=== PATIENT | female | born 1955 | race Caucasian/White ===

== ENCOUNTER → 2017-06-27 | Outpatient (CLI) | payer OTHER | END | disposition home or self-care (01) | LOC: KCIC MAMMO 12:29 | DX: Z12.31 Encounter for screening mammogram for malignant neoplasm of breast (principal); R92.1 Mammographic calcification found on diagnostic imaging of breast | CPT/HCPCS: 77067 ==

== ENCOUNTER → 2017-06-29 | Outpatient (CLI) | payer OTHER | END | disposition home or self-care (01) | LOC: KCIC MAMMO 13:43 | DX: R92.1 Mammographic calcification found on diagnostic imaging of breast (principal) | CPT/HCPCS: 77065 ==

== ENCOUNTER → 2018-07-25 | Outpatient (CLI) | payer OTHER ==
[~2018-07-25] MED LIST: ALPR1TAB6 PO; HYDR-2769 PO; LISI-334 PO; LOVA20TA2 PO; RANI150T2 PO; VERA180T6 PO
--- NOTE | 2018-07-25 13:55 | KCIC ---
Bilateral digital screening mammograms: Reason for examination: Routine screening. Comparison is made to previous studies dated 08/27/2015 and 06/27/2017. Interpretation was made with the benefit of CAD. The skin and nipples show no abnormalities. No abnormal axillary lymph nodes are seen. The breast parenchyma shows scattered fibroglandular density. (Breast density: Category B.) There are no dominant masses, suspicious calcifications or architectural distortions. Some benign calcifications are present. Impression: No evidence of malignancy. Recommend routine screening. BI-RADS category 2: Benign "Our facility is accredited by the [employer]ammography [employer]." This patient's information has been entered into a reminder system for the patient to be notified with the results of her examination and a target date for the next mammogram. Electronically signed by: Irene Vincent MD (07/25/2018 1:52 PM) [id number]
== END | disposition home or self-care (01) ==
LOC: KCIC MAMMO 10:40
PROVIDERS: ATTEND Obstetrics & Gynecology
DX: Z12.31 Encounter for screening mammogram for malignant neoplasm of breast (principal)
CPT/HCPCS: 77067

== ENCOUNTER 2019-06-29 16:34 | Emergency (ER) | payer OTHER ==
[~2019-06-29] VITALS: Ht 154.9 cm; Wt 68.0 kg
--- NOTE | 2019-06-29 17:16 | PHYS DOC ---
Past Medical History Past Medical History: Hypertension Additional Past Medical Histor: chronic pain, IBS Past Surgical History: Hysterectomy, Other Additional Past Surgical Histo: NECK SGRY Alcohol Use: None Drug Use: None Adult General Chief Complaint Chief Complaint: HYPERTENSION HPI HPI Patient is a 64 year old Female who presents with states for the last couple weeks she has noticed she has had a headache off and on to the top of her head and she does not usually get headaches. She states she just hasn't felt very good and his heart is coming in her years. She states that she took her blood pressure at home and is been running high between 160s to 190s. She states she is on lisinopril of which she doubled up on this morning because she thought it would help her blood pressure. States she also takes Verapamil. Patient denies chest pain, shortness of air, dizziness, visual changes, weakness, numbness or tingling, abdominal pain, nausea, vomiting, diarrhea, fevers, back pain, weakness. Review of Systems Review of Systems HENT: Denies nasal congestion or sore throat. Ringing in ears. [] Neurologic: headache, denies focal weakness or sensory changes [] All other systems were reviewed and found to be within normal limits, except as documented in this note. Current Medications Current Medications Current Medications Medications (Trade) Dose Ordered Sig/Patti Start Time Stop Time Status Last Admin Dose Admin Clonidine HCl (Catapres) 0.1 mg 1X ONCE 06/29/19 18:15 06/29/19 18:16 DC 06/29/19 18:18 0.1 MG Allergies Allergies Allergies Coded Allergies Type Severity Reaction Last Updated Verified amoxicillin Allergy Intermediate 06/29/19 Yes Physical Exam Physical Exam Constitutional: Well developed, well nourished, no acute distress, non-toxic appearance. [] HENT: Normocephalic, atraumatic, bilateral external ears normal, oropharynx moist, no oral exudates, nose normal. [] Eyes: PERRLA, EOMI, conjunctiva normal, no discharge. [] Neck: Normal range of motion, no tenderness, supple, no stridor. [] Cardiovascular:Heart rate regular rhythm, no murmur [] Lungs & Thorax: Bilateral upper breath sounds clear and lower diminished to auscultation [] Abdomen: Bowel sounds normal, soft, no tenderness, no masses, no pulsatile masses. [] Skin: Warm, dry, no erythema, no rash. [] Back: No tenderness, no CVA tenderness. [] Extremities: No tenderness, no cyanosis, no clubbing, ROM intact, no edema. [] Neurologic: Alert and oriented X 3, normal motor function, normal sensory function, no focal deficits noted. [] Psychologic: Affect normal, judgement normal, mood normal. [] Current Patient Data Vital Signs Vital Signs Date Time Temp Pulse Resp B/P (MAP) Pulse Ox O2 Delivery O2 Flow Rate FiO2 06/29/19 18:18 81 187/78 06/29/19 17:43 18 95 06/29/19 16:56 98.2 Room Air 98.2 Lab Values Laboratory Tests Test 06/29/19 17:19 06/29/19 18:20 White Blood Count 10.2 x10^3/uL (4.0-11.0) Red Blood Count 5.83 x10^6/uL (3.50-5.40) H Hemoglobin 17.6 g/dL (12.0-15.5) H Hematocrit 52.8 % (36.0-47.0) H Mean Corpuscular Volume 91 fL (79-100) Mean Corpuscular Hemoglobin 30 pg (25-35) Mean Corpuscular Hemoglobin Concent 33 g/dL (31-37) Red Cell Distribution Width 14.6 % (11.5-14.5) H Platelet Count 203 x10^3/uL (140-400) Neutrophils (%) (Auto) 64 % (31-73) Lymphocytes (%) (Auto) 28 % (24-48) Monocytes (%) (Auto) 6 % (0-9) Eosinophils (%) (Auto) 1 % (0-3) Basophils (%) (Auto) 1 % (0-3) Neutrophils # (Auto) 6.6 x10^3/uL (1.8-7.7) Lymphocytes # (Auto) 2.8 x10^3/uL (1.0-4.8) Monocytes # (Auto) 0.6 x10^3/uL (0.0-1.1) Eosinophils # (Auto) 0.1 x10^3/uL (0.0-0.7) Basophils # (Auto) 0.1 x10^3/uL (0.0-0.2) Prothrombin Time 13.0 SEC (11.7-14.0) Prothrombin Time INR 1.0 (0.8-1.1) Sodium Level 139 mmol/L (136-145) Potassium Level 3.7 mmol/L (3.5-5.1) Chloride Level 102 mmol/L (98-107) Carbon Dioxide Level 28 mmol/L (21-32) Anion Gap 9 (6-14) Blood Urea Nitrogen 15 mg/dL (7-20) Creatinine 1.0 mg/dL (0.6-1.0) Estimated GFR (Cockcroft-Gault) 55.5 BUN/Creatinine Ratio 15 (6-20) Glucose Level 115 mg/dL (70-99) H Calcium Level 9.4 mg/dL (8.5-10.1) Total Bilirubin 0.4 mg/dL (0.2-1.0) Aspartate Amino Transferase (AST) 20 U/L (15-37) Alanine Aminotransferase (ALT) 15 U/L (14-59) Alkaline Phosphatase 70 U/L (46-116) Troponin I Quantitative < 0.017 ng/mL (0.000-0.055) VT-Vyj-B-Type Natriuretic Peptide 81 pg/mL (0-124) Total Protein 7.2 g/dL (6.4-8.2) Albumin 4.0 g/dL (3.4-5.0) Albumin/Globulin Ratio 1.3 (1.0-1.7) Urine Collection Type Unknown Urine Color Yellow Urine Clarity Cloudy Urine pH 6.5 Urine Specific Anderson 1.010 Urine Protein Negative mg/dL (NEG-TRACE) Urine Glucose (UA) Negative mg/dL (NEG) Urine Ketones (Stick) Negative mg/dL (NEG) Urine Blood Negative (NEG) Urine Nitrite Negative (NEG) Urine Bilirubin Negative (NEG) Urine Urobilinogen Dipstick 1.0 mg/dL (0.2 mg/dL) Urine Leukocyte Esterase Negative (NEG) Urine RBC Occ /HPF (0-2) Urine WBC 1-4 /HPF (0-4) Urine Squamous Epithelial Cells Mod /LPF Urine Bacteria Moderate /HPF (0-FEW) Urine Opiates Screen Pos (NEG) Urine Methadone Screen Neg (NEG) Urine Barbiturates Neg (NEG) Urine Phencyclidine Screen Neg (NEG) Urine Amphetamine/Methamphetamine Neg (NEG) Urine Benzodiazepines Screen Neg (NEG) Urine Cocaine Screen Neg (NEG) Urine Cannabinoids Screen Neg (NEG) Urine Ethyl Alcohol Neg (NEG) Laboratory Tests 06/29/19 17:19 Laboratory Tests 06/29/19 17:19 EKG EKG Sinus Rhythm and no STEMI[] Interpretation Time: [address] Stevens Radiology/Procedures Radiology/Procedures [] Impressions: [address] [address] IMAGING REPORT Signed PATIENT: WOODY MALONE: [id number] : 1955 LOCATION: ER AGE: 64 SEX: F EXAM STATUS: PRE ER ORD. PHYSICIAN: HANNA JARA APRN REASON: HYPERTENSION PROCEDURE: CHEST PA & LATERAL EXAM: CHEST 2 VIEWS. HISTORY: Hypertension. COMPARISON: 08/10/2013. FINDINGS: Frontal and lateral views of the chest are obtained. There are no confluent infiltrates. There is no pneumothorax or pleural effusion. The heart is not enlarged. Anterior cervical discectomy and fusion changes are noted. IMPRESSION: 1. No confluent infiltrates. Electronically signed by: Chris Belcher MD (06/29/2019 6:10 PM) [id number] DICTATED and SIGNED BY: IMELDA BELCEHR MD DATE: 06/29/[address] [address] IMAGING REPORT Signed PATIENT: WOODY MALONE: [id number] : 1955 LOCATION: ER AGE: 64 SEX: F EXAM STATUS: PRE ER ORD. PHYSICIAN: HANNA JARA APRN REASON: headache, htn PROCEDURE: CT HEAD WO CONTRAST EXAM: CT HEAD WITHOUT CONTRAST. HISTORY: Headache, hypertension. TECHNIQUE: Computed tomography of the head was performed without intravenous contrast. One or more of the following individualized dose reduction techniques were utilized for this examination: 1. Automated exposure control. 2. Adjustment of the mA and/or kV according to patient size. 3. Use of iterative reconstruction technique. COMPARISON: None. FINDINGS: There is no intracranial hemorrhage. Hypoattenuation within the periventricular white matter indicates mild chronic microangiopathic change. The ventricles are normal in size and position. The visualized paranasal sinuses appear clear. The orbits are unremarkable. The temporal bones are unremarkable. The calvarium reveals no suspicious lesions. IMPRESSION: 1. No acute intracranial findings. Electronically signed by: Chris Belcher MD (06/29/2019 6:18 PM) [id number] DICTATED and SIGNED BY: IMELDA BELCHER MD DATE: 06/29/191817 Course & Med Decision Making Course & Med Decision Making Ambulatory with steady gait. Speaks in full clear sentences. Skin pink warm and dry. PERRLA. No extremity edema. Lungs are clear to auscultation upper lobes but diminished in lower lobes. Patient is a smoker a pack and a half a day. She states that the headaches that come and go are not the worst headache she has ever experienced. After the clonidine given patients blood pressure has around the same. The patient is asymptomatic. 1800: Patient's blood pressure remains normal and 80s. I spoke to Dr. Stevens concerning this patient, findings and care plan. He states give the patient clonidine 0.1 down the ED. He states to have her increase her lisinopril to 40 mg daily and to follow-up with her doctor this coming week. Dragon Disclaimer Dragon Disclaimer This electronic medical record was generated, in whole or in part, using a voice recognition dictation system. NIHSS Stroke Scale NIH Stroke Scale: NIH Stroke Scale Response (Comments) Value Level of Consciousness: 0 Alert/Responsive 0 LOC Questions: 0 Answers both correctly 0 LOC Commands: 0 Performs both tasks 0 Best Gaze: 0 Normal 0 Visual: 0 No visual loss 0 Facial Palsy: 0 Normal, symmetrical 0 Motor - Left Arm 0 No drift 0 Motor - Right Arm 0 No drift 0 Motor - Left Leg 0 No drift 0 Motor: Right Leg 0 No drift 0 Limb Ataxia: 0 Absent 0 Sensory: 0 No loss 0 Best Language: 0 Normal 0 Dysathria: 0 Normal 0 Extinction and Inattention: 0 Normal 0 Total 0 Departure Departure Impression: Primary Impression: Hypertension Disposition: HOME, SELF-CARE Condition: STABLE Referrals: MIRANDA VANN MD (PCP) Patient Instructions: Hypertension Additional Instructions: Follow-up with primary care doctor this coming week. Increase your lisinopril to 40 mg a day. Watch your sodium intake and drink plenty of water. Problem Qualifiers Primary Impression: Hypertension Hypertension type: essential hypertension Qualified Codes: I10 - Essential (primary) hypertension HANNA JARA APRN Jun 29, 2019 17:16
[2019-06-29 17:32] LABS: BASO # 0.1 x10^3/uL (0.0-0.2); BASO % 1 % (0-3); EOS # 0.1 x10^3/uL (0.0-0.7); EOS % 1 % (0-3); HEMATOCRIT 52.8 % (36.0-47.0); HEMOGLOBIN 17.6 g/dL (12.0-15.5); LYMPH # 2.8 x10^3/uL (1.0-4.8); LYMPH % 28 % (24-48); MEAN CORPUSCULAR HEMOGLOBIN 30 pg (25-35); MEAN CORPUSCULAR HGB CONC 33 g/dL (31-37); MEAN CORPUSCULAR VOLUME 91 fL (79-100); MONO # 0.6 x10^3/uL (0.0-1.1); MONO % 6 % (0-9); NEUT # 6.6 x10^3/uL (1.8-7.7); NEUT % 64 % (31-73); PLATELET COUNT 203 x10^3/uL (140-400); RED BLOOD COUNT 5.83 x10^6/uL (3.50-5.40); RED CELL DISTRIBUTION WIDTH 14.6 % (11.5-14.5); WHITE BLOOD COUNT 10.2 x10^3/uL (4.0-11.0)
[2019-06-29 17:46] LABS: CALCIUM 9.4 mg/dL (8.5-10.1); GFR 55.5; POTASSIUM 3.7 mmol/L (3.5-5.1)
[2019-06-29 17:53] LABS: ALBUMIN/GLOBULIN RATIO 1.3 (1.0-1.7); TOTAL BILIRUBIN 0.4 mg/dL (0.2-1.0); TOTAL PROTEIN 7.2 g/dL (6.4-8.2)
--- NOTE | 2019-06-29 18:13 | RAD ---
EXAM: CHEST 2 VIEWS. HISTORY: Hypertension. COMPARISON: 08/10/2013. FINDINGS: Frontal and lateral views of the chest are obtained. There are no confluent infiltrates. There is no pneumothorax or pleural effusion. The heart is not enlarged. Anterior cervical discectomy and fusion changes are noted. IMPRESSION: 1. No confluent infiltrates. Electronically signed by: Chris Belcher MD (06/29/2019 6:10 PM) [id number]
[2019-06-29] MEDS ORDERED: cloNIDine HCL 0.1 MG TABLET PO ONE (18:15)
--- NOTE | 2019-06-29 18:21 | RAD ---
EXAM: CT HEAD WITHOUT CONTRAST. HISTORY: Headache, hypertension. TECHNIQUE: Computed tomography of the head was performed without intravenous contrast. One or more of the following individualized dose reduction techniques were utilized for this examination: 1. Automated exposure control. 2. Adjustment of the mA and/or kV according to patient size. 3. Use of iterative reconstruction technique. COMPARISON: None. FINDINGS: There is no intracranial hemorrhage. Hypoattenuation within the periventricular white matter indicates mild chronic microangiopathic change. The ventricles are normal in size and position. The visualized paranasal sinuses appear clear. The orbits are unremarkable. The temporal bones are unremarkable. The calvarium reveals no suspicious lesions. IMPRESSION: 1. No acute intracranial findings. Electronically signed by: Chris Belcher MD (06/29/2019 6:18 PM) [id number]
[2019-06-29 18:32] LABS: BILIRUBIN,URINE NEGATIVE (NEG); CLARITY,URINE CLOUDY; COLOR,URINE YELLOW; NITRITE,URINE NEGATIVE (NEG); PH,URINE 6.5; PROTEIN,URINE NEGATIVE (NEG-TRACE)
[2019-06-29 18:38] LABS: AMPHETAMINE/METHAMPHETAMINE NEG (NEG); BACTERIA,URINE MODERATE /HPF (0-FEW); BARBITURATES NEG (NEG); BENZODIAZEPINES NEG (NEG); CANNABINOIDS NEG (NEG); COCAINE NEG (NEG); METHADONE NEG (NEG); OPIATES POS (NEG); PHENCYCLIDINE NEG (NEG); RBC,URINE OCC /HPF (0-2); SQUAMOUS EPITHELIAL CELL,UR MOD /LPF
[2019-06-29 18:54] VITALS: BP 181/81
--- NOTE | 2019-06-30 17:39 | EKG ---
[facility] [address] [place] [address] Test Date: 2019-06-29 Test Time: 16:48:42 Pat Name: RACHEL MALONE Department: Room: Gender: F Help Aid: : 1955 Requested By: HANNA JARA Order Number: [id number] Reading MD: Measurements Intervals [place] Rate: 80 P: -51 MO: 142 QRS: -23 QRSD: 80 T: 61 QT: 368 QTc: 427 Interpretive Statements SINUS RHYTHM LEFTWARD AXIS R-S TRANSITION ZONE IN V LEADS DISPLACED TO THE LEFT T ABNORMALITY IN HIGH LATERAL LEADS ABNORMAL ECG No previous ECG available for comparison
== END 2019-06-29 19:20 | disposition home or self-care (01) ==
LOC: ER 16:34
DX: I10 Essential (primary) hypertension (principal); R51 Headache; G89.29 Other chronic pain; K58.9 Irritable bowel syndrome, unspecified; Z88.1 Allergy status to other antibiotic agents; F17.200 Nicotine dependence, unspecified, uncomplicated
CPT/HCPCS: 36415; 70450; 71046; 80053; 80307; 81001; 83880; 84484; 85025; 85610; 87086; 93005; 99285-25

== ENCOUNTER 2019-09-09 21:14 | Emergency (ER) | payer OTHER ==
[~2019-09-09] VITALS: Ht 162.6 cm; Wt 68.1 kg
--- NOTE | 2019-09-09 21:39 | PHYS DOC ---
Past Medical History Past Medical History: Hypertension Additional Past Medical Histor: chronic pain, IBS Past Surgical History: Hysterectomy, Other Additional Past Surgical Histo: NECK SGRY Smoking Status: Current Every Day Smoker Alcohol Use: None Drug Use: None General Adult EDM: Chief Complaint: COUGH HPI: HPI: Patient is a 64 year old female who presents with complaint of cough for the last 5 weeks. Patient states the cough is been intermittently productive of sputum and states that she has seen some blood mixed in with the sputum as well. Patient denies any fever. She denies any chest pain or shortness of breath. She denies any history of COPD but is a smoker. Patient states that she was told to come into the emergency room for further evaluation.[] Review of Systems: Review of Systems: Constitutional: Denies fever or chills. [] Respiratory: Complains of cough without shortness of breath. [] Cardiovascular: Denies chest pain or edema. [] GI: Denies abdominal pain, nausea, vomiting, bloody stools or diarrhea. [] Neurologic: Denies headache, focal weakness or sensory changes. [] A full 10 point review of systems has been completed and is otherwise negative. Heart Score: Risk Factors: Risk Factors: DM, Current or recent (<one month) smoker, HTN, HLP, family history of CAD, obesity. Risk Scores: Score 0 - 3: 2.5% MACE over next 6 weeks - Discharge Home Score 4 - 6: 20.3% MACE over next 6 weeks - Admit for Clinical Observation Score 7 - 10: 72.7% MACE over next 6 weeks - Early Invasive Strategies Allergies: Allergies: Allergies Coded Allergies Type Severity Reaction Last Updated Verified amoxicillin Allergy Intermediate 06/29/19 Yes Physical Exam: PE: Constitutional: Well developed, well nourished, no acute distress, non-toxic appearance. [] HENT: Normocephalic, atraumatic, bilateral external ears normal, oropharynx moist, no oral exudates, nose normal. [] Eyes: PERRLA, EOMI, conjunctiva normal, no discharge. [] Neck: Normal range of motion, no tenderness, supple, no stridor. [] Cardiovascular: Regular rate and rhythm[] Lungs & Thorax: Bilateral breath sounds clear to auscultation [] Abdomen: Bowel sounds normal, soft, no tenderness. [] Skin: Warm, dry, no erythema, no rash. [] Extremities: No tenderness, no cyanosis, no clubbing, ROM intact, no edema. [] Neurologic: Alert and oriented X 3, no focal deficits noted. [] EKG: EKG: [] Radiology/Procedures: Radiology/Procedures: [] Impression: PROCEDURE: CHEST PA & LATERAL Exam: Chest 2 view INDICATION: Coughing blood TECHNIQUE: Frontal and lateral views of the chest Comparisons: 06/29/2019 FINDINGS: The cardiomediastinal silhouette and pulmonary vessels are within normal limits. The lung and pleural spaces are clear. IMPRESSION: No acute cardiopulmonary process. Electronically signed by: Berenice Tucker MD (09/09/2019 10:08 PM) [id number] Course & Med Decision Making: Course & Med Decision Making Pertinent Labs and Imaging studies reviewed. (See chart for details) [] Dragon Disclaimer: Dragon Disclaimer: This electronic medical record was generated, in whole or in part, using a voice recognition dictation system. Departure Departure Impression: Primary Impression: Bronchitis Additional Impression: Hypertension Qualified Codes: I10 - Essential (primary) hypertension Disposition: HOME, SELF-CARE Condition: STABLE Referrals: MIRANDA VANN MD (PCP) Patient Instructions: Bronchitis, Hypertension Additional Instructions: Take Z-Stef as already prescribed. KAVON SHANE Jr. DO Sep 09, 2019 21:39
[2019-09-09] MEDS ORDERED: cloNIDine HCL 0.1 MG TABLET PO ONE (22:00)
--- NOTE | 2019-09-09 22:11 | RAD ---
Exam: Chest 2 view INDICATION: Coughing blood TECHNIQUE: Frontal and lateral views of the chest Comparisons: 06/29/2019 FINDINGS: The cardiomediastinal silhouette and pulmonary vessels are within normal limits. The lung and pleural spaces are clear. IMPRESSION: No acute cardiopulmonary process. Electronically signed by: Berenice Tucker MD (09/09/2019 10:08 PM) [id number]
[2019-09-09] MEDS ORDERED: AZITHROMYCIN 250 MG TABLET. PO ONE (22:30)
[2019-09-09 22:32] VITALS: BP 182/77
== END 2019-09-09 22:41 | disposition home or self-care (01) ==
LOC: ER 21:14
DX: J40 Bronchitis, not specified as acute or chronic (principal); I10 Essential (primary) hypertension; F17.200 Nicotine dependence, unspecified, uncomplicated; G89.29 Other chronic pain; K58.9 Irritable bowel syndrome, unspecified; Z88.1 Allergy status to other antibiotic agents
CPT/HCPCS: 71046; 99283

== ENCOUNTER → 2020-08-17 | Outpatient (CLI) | payer OTHER ==
[~2020-08-17] MED LIST changes: -LISI-334 PO; +LISI20TA18 PO
--- NOTE | 2020-08-17 14:21 | KCIC ---
Bilateral digital screening mammograms: Reason for examination: Routine screening. Comparison is made to previous studies dated back to 08/27/2015. Interpretation was made with the benefit of CAD. The skin and nipples show no abnormalities. No abnormal axillary lymph nodes are seen. The breast par enchyma shows scattered fibroglandular density. (Breast density: Category B.) There continues to be a small nodule consistent with an intramammary lymph node at the 10:00 B position of the right breast which is stable. There are no new dominant masses, suspicious calcifications or architectural distort ions. A few benign calcifications are again seen. Impression: No evidence of malignancy. Recommend routine screening. BI-RADS Category 2: Benign. "Our facility is accredited by the [employer] Mammography Program." This patient's information has been entered into a reminder system for the patient to be notified wit h the results of her examination and a target date for the next mammogram. Electronically signed by: Irene Vincent MD (08/17/2020 2:19 PM) [id number]
== END ==
LOC: KCIC MAMMO 10:12
PROVIDERS: ATTEND Obstetrics & Gynecology
DX: Z12.31 Encounter for screening mammogram for malignant neoplasm of breast (principal)
CPT/HCPCS: 77067

== ENCOUNTER 2020-11-28 22:02 | Emergency (ER) | payer OTHER ==
[~2020-11-28] VITALS: Ht 154.9 cm; Wt 71.4 kg
[2020-11-28] MEDS ORDERED: LIDOCAINE 1%/EPI 1:100,000 20 ML VIAL. INJ ONE (22:30)
--- NOTE | 2020-11-28 22:41 | PHYS DOC ---
Past Medical History Past Medical History: Hypertension Additional Past Medical Histor: chronic pain, IBS Past Surgical History: Hysterectomy, Other Additional Past Surgical Histo: NECK SGRY Smoking Status: Current Every Day Smoker Alcohol Use: None Drug Use: None General Adult EDM: Chief Complaint: LACERATION/AVULSION HPI: HPI: Patient is a 65 year old female with history of hypertension presenting to the ED today with right forearm laceration that occurred prior to coming to the ED. Patient states she was moving a headboard and her right arm got "caught" or "pinched" by something. Review of Systems: Review of Systems: Constitutional: Denies fever or chills. [] Eyes: Denies change in visual acuity. [] HENT: Denies nasal congestion or sore throat. [] Respiratory: Denies cough or shortness of breath. [] Cardiovascular: Denies chest pain or edema. [] GI: Denies abdominal pain, nausea, vomiting, bloody stools or diarrhea. [] : Denies dysuria. [] Musculoskeletal: Denies back pain or joint pain. [] Integument: Reports right forearm laceration Neurologic: Denies headache, focal weakness or sensory changes. [] Endocrine: Denies polyuria or polydipsia. [] Lymphatic: Denies swollen glands. [] Psychiatric: Denies depression or anxiety. [] Heart Score: C/O Chest Pain: N/A Risk Factors: Risk Factors: DM, Current or recent (<one month) smoker, HTN, HLP, family history of CAD, obesity. Risk Scores: Score 0 - 3: 2.5% MACE over next 6 weeks - Discharge Home Score 4 - 6: 20.3% MACE over next 6 weeks - Admit for Clinical Observation Score 7 - 10: 72.7% MACE over next 6 weeks - Early Invasive Strategies Current Medications: Current Medications Medications (Trade) Dose Ordered Sig/Patti Start Time Stop Time Status Last Admin Dose Admin Lidocaine/ Epinephrine (LIDOCAINE 1%-EPI 1:100,000 Multi-Dose) 20 ml 1X ONCE 11/28/20 22:30 11/28/20 22:31 DC 11/28/20 22:20 20 ML Allergies: Allergies: Allergies Coded Allergies Type Severity Reaction Last Updated Verified amoxicillin Allergy Intermediate 06/29/19 Yes Physical Exam: PE: Constitutional: Well developed, well nourished, no acute distress, non-toxic appearance. [] Skin: Right forearm with a L-shaped laceration approximately 8 cm long. No tendon involvement. Full range of motion to the right upper extremity. Adequate radial, medial, ulnar sensation to the right upper extremity. +2 right radial pulse. Cap refill less than 2 seconds the right fingers Back: No tenderness, no CVA tenderness. [] Extremities: No tenderness, no cyanosis, no clubbing, ROM intact, no edema. [] Neurologic: Alert and oriented X 3, normal motor function, normal sensory function, no focal deficits noted. [] Psychologic: Affect normal, judgement normal, mood normal. [] EKG: EKG: [] Radiology/Procedures: Radiology/Procedures: Laceration/Wound Repair Wound Location: Right forearm Wound's Depth, Shape: L Wound Length (cm): Approx. 8 cm Wound Explored: clean Irrigated w/ Saline (ccs): 100 Betadine Prep?: Y Anesthesia: 1% of lidocaine with epinephrine Volume Anesthetic (ccs): [] Wound Repaired With: Ethilon Suture Size/Type: 4.0/interrupted sutures Number of Sutures:15 Progress : Wound was covered with nonstick dressing Course & Med Decision Making: Course & Med Decision Making Pertinent Labs and Imaging studies reviewed. (See chart for details) This is a 65-year-old female patient presenting to the ED today with right forearm laceration that was repaired by me as noted in procedures. Wound care instructions and return precautions provided. Tetanus updated. Discharged home. Follow-up with PCP or ED in 7 days for suture removal Clark Disclaimer: Clark Disclaimer: This electronic medical record was generated, in whole or in part, using a voice recognition dictation system. Departure Departure Impression: Primary Impression: Laceration of right forearm Qualified Codes: S51.811A - Laceration without foreign body of right forearm, initial encounter Disposition: HOME / SELF CARE / HOMELESS Condition: STABLE Referrals: MIRANDA VANN MD (PCP) Follow-up in 7 days for stitches to be removed or you can come [facility] Patient Instructions: Laceration Care, Adult Additional Instructions: You have laceration to your right forearm that was repaired with stitches. Remove the dressing in 24 hours. Keep the area clean and dry. You can shower and wash the area once a day. Apply Neosporin to the area twice a day for 10 days. Monitor the area for any signs of infection including but not limited to increased redness, warmth, yellow drainage from the area and return to the ED if they occur. Please follow-up with the emergency room or your own doctor in 1 week for stitches to be removed MENDOZA WHEATLEY APRN Nov 28, 2020 22:41
[2020-11-28 23:32] VITALS: BP 228/106
[2020-11-28] MEDS ORDERED: cloNIDine HCL 0.1 MG TABLET PO ONE (23:45)
[2020-11-28] MEDS ORDERED: DIPH,PERTUSS(ACELL),TET VAC/PF 0.5 ML SYRINGE. VAX IM ONE (23:45)
== END 2020-11-28 23:36 | disposition home or self-care (01) ==
LOC: ER 22:02
DX: S51.811A Laceration without foreign body of right forearm, initial encounter (principal); I10 Essential (primary) hypertension; G89.29 Other chronic pain; K58.9 Irritable bowel syndrome, unspecified; F17.200 Nicotine dependence, unspecified, uncomplicated; Z88.1 Allergy status to other antibiotic agents; W23.0XXA Caught, crushed, jammed, or pinched between moving objects, initial encounter; Y93.89 Activity, other specified; Y92.89 Other specified places as the place of occurrence of the external cause; Y99.8 Other external cause status
CPT/HCPCS: 12004; 90471; 90715; 99283; J3490; 12002

== ENCOUNTER 2020-12-06 13:21 | Emergency (ER) | payer OTHER ==
[~2020-12-06] VITALS: Ht 154.9 cm; Wt 70.5 kg
[2020-12-06 13:47] VITALS: BP 210/92
[2020-12-06] MEDS ORDERED: CLIN150C15 PO (14:11)
--- NOTE | 2020-12-06 14:11 | ED.ADGEN ---
Past Medical History Past Medical History: Hypertension Additional Past Medical Histor: chronic pain, IBS, "PRE DIABETIC" Past Surgical History: Hysterectomy, Other Additional Past Surgical Histo: NECK SGRY Smoking Status: Current Every Day Smoker Alcohol Use: None Drug Use: None General Adult EDM: Chief Complaint: SUTURE/STAPLE REMOVAL HPI: HPI: Patient is a 65 year old female who presents emergency department with need for suture removal from a wound on her left forearm. Patient states she was seen here on November 28 and had her sutures placed. She has been cleaning the site twice a day with soap and water and applying Neosporin. She denies any bleeding or purulent drainage from the site. She states she has noticed the development of redness, warmth, and that the site is painful. Patient states that she received her tetanus shot on that day. She denies any fever, chills, body aches. She currently rates the pain a 5 out of 10 on the pain scale and describes it as a soreness. She denies any alleviating factors, pain is worse with palpation. Review of Systems: Review of Systems: Complete ROS is negative unless otherwise noted in HPI. Allergies: Allergies: Allergies Coded Allergies Type Severity Reaction Last Updated Verified amoxicillin Allergy Intermediate 06/29/19 Yes Physical Exam: PE: See Above Constitutional: Well developed, well nourished, no acute distress, non-toxic appearance. [] HENT: Normocephalic, atraumatic, bilateral external ears normal, nose normal. [] Eyes: PERRLA, EOMI, conjunctiva normal, no discharge. [] Neck: Normal range of motion, no stridor. [] Cardiovascular:Heart rate regular rhythm Lungs & Thorax: Respirations even and unlabored, no retractions, no respiratory distress Skin: Warm, dry; healing laceration to the lateral right elbow without any drainage or bleeding, significant erythema and warmth around the wound edges Extremities: No cyanosis, ROM intact, no edema. [] Neurologic: Alert and oriented X 3, normal motor, normal sensory, no focal deficits noted. [] Psychologic: Affect normal, judgement normal, mood normal. [] Current Patient Data: Vital Signs: Vital Signs Date Time Temp Pulse Resp B/P (MAP) Pulse Ox O2 Delivery O2 Flow Rate FiO2 12/06/20 13:47 98.7 77 16 210/92 (146) 94 Room Air 98.7 EKG: EKG: [] Heart Score: C/O Chest Pain: No Radiology/Procedures: Radiology/Procedures: Using tweezers and scissors I removed 2 of the sutures from the medial portion of the flap wound, there was concern for wound dehiscence, therefore suture removal was stopped. Course & Med Decision Making: Course & Med Decision Making Pertinent Labs and Imaging studies reviewed. (See chart for details) 65-year-old female presents emergency department for suture removal. After removing 2 of the sutures there was concern for wound dehiscence. I advised the patient that it is too soon to remove the sutures and informed her that the site appears infected. Prescription written for clindamycin. I encouraged the patient to stop application of neomycin. She was instructed to clean the affected area twice a day with just soap and water. Return to the ER in 7 days for suture removal. Return sooner if fever develops or symptoms worsen. Patient verbalized an understanding of home care, medications, follow-up, and return to ED instructions and was in agreement with the plan of care. At triage patient was noted to be hypertensive, she reported that she had not taken her blood pressure medication this morning. Patient states that she monitors her blood pressure at home and will take her blood pressure medications as soon as she arrives home. Dragon Disclaimer: Clark Disclaimer: This electronic medical record was generated, in whole or in part, using a voice recognition dictation system. Departure Departure Impression: Primary Impression: Encounter for wound re-check Additional Impressions: Infected laceration of skin Hypertension Disposition: HOME / SELF CARE / HOMELESS Condition: STABLE Referrals: MIRANDA VANN MD (PCP) Patient Instructions: Laceration Care, Adult, [id number] Additional Instructions: Fill the prescription and use it as directed. Wash the affected area twice a da y with soap and water, return to the ER in 7 days for suture removal, sooner if you develop a fever or increased redness. Scripts Clindamycin Hcl (CLINDAMYCIN HCL) 150 Mg Capsule 450 MG PO TID for 7 Days, #63 CAP 0 Refills Prov: GATO RITCHIE APRN 12/06/20 Problem Qualifiers Additional Impressions: Hypertension Hypertension type: unspecified Qualified Codes: I10 - Essential (primary) hypertension GATO RITCHIE MANAGER NEONATAL Dec 06, 2020 14:11
== END 2020-12-06 14:36 | disposition home or self-care (01) ==
LOC: ER 13:21
DX: S51.011D Laceration without foreign body of right elbow, subsequent encounter (principal); I10 Essential (primary) hypertension; G89.29 Other chronic pain; K58.9 Irritable bowel syndrome, unspecified; F17.200 Nicotine dependence, unspecified, uncomplicated; Z88.1 Allergy status to other antibiotic agents; X58.XXXD Exposure to other specified factors, subsequent encounter
CPT/HCPCS: 99283

== ENCOUNTER 2020-12-12 11:08 | Emergency (ER) | payer OTHER ==
[~2020-12-12] VITALS: Ht 154.9 cm; Wt 70.6 kg
[~2020-12-12 11:08] MED LIST changes: +CLIN150C15 PO
--- NOTE | 2020-12-12 11:59 | PHYS DOC ---
Past Medical History Past Medical History: Hypertension Additional Past Medical Histor: chronic pain, IBS, "PRE DIABETIC" (MENDOZA WHEATLEY APRN) Past Surgical History: Hysterectomy, Other Additional Past Surgical Histo: NECK SGRY (MENDOZA WHEATLEY APRN) Smoking Status: Current Every Day Smoker Alcohol Use: None Drug Use: None (MENDOZA WHEATLEY APRN) General Adult EDM: Chief Complaint: WOUND RECHECK/SUTURE REMOVAL HPI: HPI: Patient is a 65 year old female with history of pretension presenting today for suture removal from the right forearm. Sutures have been in for 2 weeks. Patient states she came to the ED a week ago and was noted to have infection over the laceration site, she was sent home on clindamycin. She states she took 1 capsule and has not taken anymore because she could not believe she has to take the medicine 3 times a day. She states that is too much. Denies any fever. (MENDOZA WHEATLEY APRN) Review of Systems: Review of Systems: Constitutional: Denies fever or chills. [] Musculoskeletal: Denies back pain or joint pain. [] Integument: Visit for suture removal from the right forearm Neurologic: Denies headache, focal weakness or sensory changes. [] Psychiatric: Denies depression or anxiety. [] (MENDOZA WHEATLEY APRN) Heart Score: C/O Chest Pain: N/A Risk Factors: Risk Factors: DM, Current or recent (<one month) smoker, HTN, HLP, family history of CAD, obesity. Risk Scores: Score 0 - 3: 2.5% MACE over next 6 weeks - Discharge Home Score 4 - 6: 20.3% MACE over next 6 weeks - Admit for Clinical Observation Score 7 - 10: 72.7% MACE over next 6 weeks - Early Invasive Strategies (MENDOZA WHEATLEY APRN) Current Medications: Current Medications Medications (Trade) Dose Ordered Sig/Patti Start Time Stop Time Status Last Admin Dose Admin Mupirocin (Bactroban) 1 milana 1X ONCE 12/12/20 12:00 12/12/20 12:01 (MENDOZA WHEATLEY APRN) Allergies: Allergies: Allergies Coded Allergies Type Severity Reaction Last Updated Verified amoxicillin Allergy Intermediate 06/29/19 Yes (MENDOZA WHEATLEY APRN) Physical Exam: PE: Constitutional: Well developed, well nourished, no acute distress, non-toxic appearance. [] Skin: Right forearm with a well approximated laceration site with scabbing over the laceration site. There is approximately 0.5 cm of cellulitis surrounding the laceration site. No drainage. Back: No tenderness, no CVA tenderness. [] Extremities: No tenderness, no cyanosis, no clubbing, ROM intact, no edema. [] Neurologic: Alert and oriented X 3, normal motor function, normal sensory function, no focal deficits noted. [] Psychologic: Affect normal, judgement normal, mood normal. [] (MENDOZA WHEATLEY APRN) EKG: EKG: [] (MENDOZA WHEATLEY APRN) Radiology/Procedures: Radiology/Procedures: [] (MENDOZA WHEATLEY APRN) Course & Med Decision Making: Course & Med Decision Making Pertinent Labs and Imaging studies reviewed. (See chart for details) This is a 65-year-old female patient presenting to the ED today for suture removal from the right forearm. The laceration site is infected. He was in the ED a week ago and was given clindamycin, she took 1 capsule only on day 1 and did not continue the medicine because it is dosed 3 times a day and she states that is too much for her. Remove stitches from the right forearm and ordered mupirocin for her. Discharge to home. Follow-up with her PCP. Emphasized the importance of using the mupirocin. Provided return precautions and discharged in stable condition (MENDOZA WHEATLEY APRN) Dragon Disclaimer: Clark Disclaimer: This electronic medical record was generated, in whole or in part, using a voice recognition dictation system. (MENDOZA WHEATLEY APRN) Departure Departure Impression: Primary Impression: Visit for suture removal Disposition: HOME / SELF CARE / HOMELESS Condition: STABLE Referrals: MIRANDA VANN MD (PCP) Follow-up in 1 week Patient Instructions: Suture Removal Additional Instructions: Stitches were removed from the right forearm. Please use mupirocin cream 3 times a day over the laceration site. You can wash the laceration site with regular soap and water once or twice a day. Keep the area clean and dry. Follow-up with your doctor in 1 week. Come back to the ED at any point wound condition worsens Attending Signature Attending Signature I have reviewed the PA/ENVIRONMENTAL EPIDEMIOLOGIST's note and plan of care. I was available for consultation as needed during the patient's visit in the emergency department. I agree with the clinical impression, plan, and disposition. (ELENA LEA DO) MENDOZA WHEATLEY APRN Dec 12, 2020 11:59 ELENA LEA DO Dec 12, 2020 14:08
[2020-12-12] MEDS ORDERED: MUPIROCIN 2 % TOPICAL CREAM 30GM TUBE. TP ONE (12:00)
[2020-12-12 12:15] VITALS: BP 153/67
== END 2020-12-12 12:55 | disposition home or self-care (01) ==
LOC: ER 11:08
DX: S51.811D Laceration without foreign body of right forearm, subsequent encounter (principal); L03.113 Cellulitis of right upper limb; I10 Essential (primary) hypertension; G89.29 Other chronic pain; K58.9 Irritable bowel syndrome, unspecified; F17.200 Nicotine dependence, unspecified, uncomplicated; Z88.1 Allergy status to other antibiotic agents; X58.XXXD Exposure to other specified factors, subsequent encounter
CPT/HCPCS: 99282